=== PATIENT | male | born 1955 | race African-American/Black ===

== ENCOUNTER → 2017-12-19 | Outpatient (CLI) | payer MEDICARE, OTHER ==
[~2017-12-19] VITALS: Ht 182.9 cm; Wt 95.2 kg
[~2017-12-19] MED LIST: ASCO500 PO; ATEN25TA PO; ATOR10TA84 PO; CLOP75 PO; FLUT16H NASAL; LIDOCAINE HCL 4% 50 ML SOLUTION TP ONE; LIFI1DRO OU; METO5TAB95 PO; MIRT15 PO; MORP15TA9 PO; MORP60TA6 PO; MULT-959 PO; ONDA4 PO; OXYC20 PO; PYRI50 PO; SIME80 PO; SUCR1TAB PO; THIA100T67 PO
[2017-12-19 11:30] VITALS: BP 114/67
== END | disposition home or self-care (01) ==
LOC: HBOWC 09:24
PROVIDERS: ATTEND Surgery Plastic and Reconstructive Surgery
DX: S91.302D Unspecified open wound, left foot, subsequent encounter (principal); S91.301D Unspecified open wound, right foot, subsequent encounter; X58.XXXD Exposure to other specified factors, subsequent encounter

== ENCOUNTER → 2018-01-31 | Outpatient (CLI) | payer MEDICARE, OTHER ==
[~2018-01-31] MED LIST changes: +CHLORHEXIDINE GLUCONATE 4% 118 ML TOPICAL LIQUID TP ONE; -LIDOCAINE HCL 4% 50 ML SOLUTION TP ONE
[2018-01-31 10:54] VITALS: BP 124/71
== END | disposition home or self-care (01) ==
LOC: HBOWC 09:55
PROVIDERS: ATTEND Emergency Medicine
DX: L89.154 Pressure ulcer of sacral region, stage 4 (principal); I73.9 Peripheral vascular disease, unspecified